=== PATIENT | female | born 1960 | race Caucasian/White ===

== ENCOUNTER 2025-02-23 09:33 | Day surgery (SDC) | payer MEDICARE ==
[2025-02-23] VITALS (8 sets, daily range): BP systolic 102–118; BP diastolic 49–88; PULSE 57–72; RESP 15–20; TEMP 97.9; O2SAT 95–100
[~2025-02-23] VITALS: Ht 167.6 cm; Wt 95.3 kg
[~2025-02-23 09:33] MED LIST: ACET-1025 PO; ASPI-1265 PO; DESV100T6 PO; GABA300C PO; LACT-373 PO; LIDOcaine 2% Viscous 15ml cup MM ONE; MULT-1074 PO; SPIR25TA5 PO; TRAZ-256 PO; ringers solution, lacted 1,000 ML IV SCH; simethicone 40mg/0.6ml oral drops 15ml PO ONE
--- NOTE | 2025-02-23 11:29 | ELECTROCARDIOGRAPH REPORT ---
[facility] Test Date: 2025-02-23 Test Time: 11:27:06 Pat Name: TARA CRUZ Department: [facility] Patient ID: [facility]-[id number] Room: Gender: F [employer]: KENNEDI : 1960 Requested By: ROCHELLE NEGRON Order Number: [id number] Reading MD: Dr. Sanjay Ponce Measurements Intervals [place] Rate: 60 P: 62 AK: 199 QRS: 75 QRSD: 107 T: 62 QT: 484 QTc: 484 Interpretive Statements Sinus rhythm Borderline T wave abnormalities Electronically Signed On 02-23-2025 12:42:[address] Sanjay Ponce Please click the below link to view image of tracing.
[2025-02-23] MEDS ORDERED: fentaNYL/PF 50MCG/1 ML 2ML syringe ONE (13:05)
[2025-02-23] MEDS ORDERED: midazolam 1 mg/ML 2ml injection ONE (13:05)
[2025-02-23] MEDS ORDERED: propofol inj 20 ML IV ONE (13:29)
--- NOTE | 2025-02-24 18:35 | PATHOLOGY REPORT ---
[facility] [address] [place] [address] SURGICAL PATHOLOGY REPORT CaseNumber: [id number] Surgeon:Mary Diego PA-C CLINICAL INFORMATION CLINICAL INFORMATION: Screening, cirrhosis. DIAGNOSIS DIAGNOSIS: STOMACH, ANTRUM; BIOPSY - MINIMAL CHRONIC INFLAMMATION. - NEGATIVE FOR INTESTINAL METAPLASIA. - NEGATIVE FOR H. PYLORI BY IMMUNOPEROXIDASE STUDY. - NEGATIVE FOR DYSPLASIA/NEOPLASIA. MICROSCOPIC DESCRIPTION MICROSCOPIC DESCRIPTION: One H&E stained slide is examined. Present is gastric antral mucosa. There is a minimal chronic inflammatory infiltrate composed predominantly of lymphocytes. There is no significant active inflammation, no i ntestinal metaplasia, and no dysplasia/neoplasia. Immunoperoxidase study for H. pylori does not highlight organisms. GROSS DESCRIPTION GROSS DESCRIPTION: Received in a container of formalin labeled with the patient's name, number, and "antrum BX" is a 0.6 x 0.2 x 0.1 cm piece of higuera tissue. The specimen is entirely submitted as A1. The time at which the specimen was removed was 1317. The time at which the specimen was placed in formalin was 1318. Electronically signed by: Jin Middleton M.D. 02/24/2025 6:05:00 PM
== END 2025-02-23 14:53 | disposition home or self-care (01) ==
LOC: GI LAB 09:33
PROVIDERS: ATTEND Internal Medicine Gastroenterology
DX: Z12.11 Encounter for screening for malignant neoplasm of colon (principal); K29.50 Unspecified chronic gastritis without bleeding; K70.30 Alcoholic cirrhosis of liver without ascites; I85.00 Esophageal varices without bleeding; K76.6 Portal hypertension; K31.89 Other diseases of stomach and duodenum; K29.80 Duodenitis without bleeding; F32.A Depression, unspecified; M19.90 Unspecified osteoarthritis, unspecified site; F17.210 Nicotine dependence, cigarettes, uncomplicated; E66.9 Obesity, unspecified; Z68.33 Body mass index [BMI] 33.0-33.9, adult; Z79.899 Other long term (current) drug therapy; Z98.890 Other specified postprocedural states
CPT/HCPCS: 43239; 93005; A4615; A4620; G0121; J2250; J2704; J3010; J7120; Z7512; Z7610; 45378

== ENCOUNTER 2025-03-17 08:38 | Day surgery (SDC) | payer MEDICARE ==
[2025-03-17] VITALS (7 sets, daily range): BP systolic 95–106; BP diastolic 49–68; PULSE 62–83; RESP 12–25; TEMP 96.5; O2SAT 95–99
[~2025-03-17] VITALS: Ht 167.6 cm; Wt 91.1 kg
[~2025-03-17 08:38] MED LIST changes: -LIDOcaine 2% Viscous 15ml cup MM ONE; +simethicone 40mg/0.6ml oral drops 15ml ONE; -simethicone 40mg/0.6ml oral drops 15ml PO ONE
[2025-03-17] MEDS ORDERED: propofol inj 20 ML IV ONE ×3 (10:59)
== END 2025-03-17 12:13 | disposition home or self-care (01) ==
LOC: PAS 08:38
PROVIDERS: ATTEND Internal Medicine Gastroenterology
DX: Z12.11 Encounter for screening for malignant neoplasm of colon (principal); K57.30 Diverticulosis of large intestine without perforation or abscess without bleeding; F17.210 Nicotine dependence, cigarettes, uncomplicated; F32.A Depression, unspecified; G62.9 Polyneuropathy, unspecified; K74.60 Unspecified cirrhosis of liver; K76.6 Portal hypertension; M19.90 Unspecified osteoarthritis, unspecified site; Z86.0100 Personal history of colon polyps, unspecified
CPT/HCPCS: A4615; G0105; J2704; J7120; Z7512; Z7610; 45380